=== PATIENT | male | born 1995 | race Hispanic/Latino ===

== ENCOUNTER 2024-09-03 22:47 | Emergency (ER) | payer SELFPAY ==
[2024-09-04] MEDS ORDERED: ONDANSETRON 4 MG/2 ML VIAL ONE ×2 (00:38→00:56)
[2024-09-04] MEDS ORDERED: LORazepam 2 MG/ML VIAL ONE (00:39)
[2024-09-04 00:40] LABS: Absolute Basophils 0.1 K/uL (0-0.5); Absolute Lymphocytes (CBC) 2.3 K/uL (0.7-4.9); Absolute Monocytes 0.7 K/uL (0.1-1.3); Absolute Neutrophil 17.4 K/uL (1.8-8.0); Basophils % 0.4 % (0-1.3); Eosinophils % 0.2 % (0-4.4); Hematocrit 45.1 % (39.6-49.0); Hemoglobin 15.8 g/dL (13.6-17.9); Lymphocytes % 11.4 % (15.3-44.8); MCH 29.2 pg (27.0-35.0); MCHC 34.9 g/dL (32.0-36.0); MCV 83.6 fL (80-100); MPV 7.9 fL (7.6-11.3); Monocytes % 3.5 % (3.3-12.3); Neutrophils % 84.5 % (41.7-73.7); Platelets 309 thou/uL (152-406); Red Cell Distribution Width 13.2 % (12.1-15.2)
[2024-09-04] MEDS ORDERED: NA CHLORIDE 0.9% 2,000 ML ONE (00:40)
[2024-09-04 00:49] LABS: PT Prothrombin Time 11.7 SECONDS (9.4-12.5); PTT, Activated Partial Thromb 29.3 SECONDS (24.3-36.9); Protime INR 1.05
[2024-09-04 01:02] LABS: ALT/SGPT 26 U/L (16-61); AST/SGOT 12 U/L (15-37); Albumin 4.1 g/dL (3.4-5.0); Albumin/Globulin Ratio 1.3 (1.1-1.8); Alkaline Phosphatase 75 U/L (45-117); Anion Gap 9.7 mEq/L (5.0-15.0); BUN Blood Urea Nitrogen 11 mg/dL (7-18); Bicarbonate 29 mEq/L (21-32); Bilirubin Total 0.4 mg/dL (0.2-1.0); Globulin 3.2 g/dL (2.3-3.5); Glomerular Filtration Rate 104 ml/min (=/>90); Glucose Level 180 mg/dL (74-106); Potassium 3.7 mEq/L (3.5-5.1); Protein, Total 7.3 g/dL (6.4-8.2); Sodium Level 139 mEq/L (136-145)
[2024-09-04 01:10] LABS: Bilirubin Direct < 0.2 mg/dL (0-0.2); Bilirubin Indirect, Calculated 0.2 mg/dL (0.2-0.8)
[2024-09-04 01:38] LABS: Band Neutrophils 16 % (0-1); Blood Morphology Comment NOT SEEN (NOT SEEN); Differential Total Cells Count 100; Lymphocytes 14 % (15-42); Monocytes 2 % (0-10); Platelet Estimate ADEQ; Segmented Neutrophils 68 % (40-80)
[2024-09-04 04:05] LABS: Specific Gravity 1.016 (1.005-1.030); Sqamous Epithelial None Seen /HPF (None Seen); Urine Bacteria <20 /HPF (<20); Urine Bilirubin NEGATIVE (Negative); Urine Blood Negative (Negative); Urine Clarity Clear (Clear); Urine Color Light-Yellow (Yellow); Urine Culture Reflex Order NOT NEEDED; Urine Glucose NEGATIVE (Negative); Urine Ketones NEGATIVE (Negative); Urine Microscopic Reflex YN ORDER UMIC; Urine Mucus Slight /HPF (None Seen); Urine Nitrite NEGATIVE (Negative); Urine Protein NEGATIVE (Negative); Urine RBC <5 /HPF (None Seen); Urine Urobilinogen Normal (Normal); Urine WBC <5 /HPF (<5)
[2024-09-04 04:14] LABS: Barbiturates NEGATIVE (NEGATIVE); Benzodiazepines NEGATIVE (NEGATIVE); Cocaine NEGATIVE (NEGATIVE); METHAMPHETAM NEGATIVE (NEGATIVE); Methadone NEGATIVE (NEGATIVE); Opiates NEGATIVE (NEGATIVE); Phencyclidine NEGATIVE (NEGATIVE); THC Cannibis NEGATIVE (NEGATIVE)
--- NOTE | 2024-09-04 04:30 | EDPHYS ---
Physician Documentation [facility] Name: Anatoly Mcleod Age: 28 yrs Sex: Male : 1995 Arrival Date: 09/03/2024 Time: 22:47 Bed 19 Private MD: ED Physician Sheldon Ocasio HPI: 09/04 04:28 This 28 yrs old Male presents to ER via EMS with complaints of Overdose. sp4 Historical: - Allergies: 02:23 No Known Allergies; cp4 - Immunization history:: Adult Immunizations unknown. - Infectious Disease History:: Denies. - Social history:: Smoking status: unknown. Vital Signs: 09/03 23:47 BP 134 / 69; Pulse 106; Resp 20; Temp 97.4; Pulse Ox 100% ; me1 09/04 00:58 BP 122 / 74; Pulse 102; Resp 20; Pulse Ox 100% ; cp4 02:26 BP 120 / 68; Pulse 104; Resp 18; Pulse Ox 99% ; cp4 03:28 BP 130 / 79; Pulse 95; Resp 18; Pulse Ox 98% ; cp4 04:36 BP 109 / 62; Pulse 94; Resp 18; Pulse Ox 97% ; cp4 MDM: 09/03 23:09 Medical Screening Exam initiated sp4 09/03 23:05 Order name: Acetaminophen; Complete Time: 01:20 sp4 09/03 23:05 Order name: Basic Metabolic Panel; Complete Time: 01:20 4 09/03 23:05 Order name: CBC with Diff; Complete Time: 03:11 4 09/03 23:05 Order name: ETOH Level; Complete Time: 01:20 4 09/03 23:05 Order name: Hepatic Function; Complete Time: 01:20 sp4 09/03 23:05 Order name: PT-INR; Complete Time: 01:20 4 09/03 23:05 Order name: Ptt, Activated; Complete Time: 01:20 4 09/03 23:05 Order name: Salicylate; Complete Time: 01:20 4 09/03 23:05 Order name: Urinalysis w/ reflexes; Complete Time: 04:09 4 09/03 23:05 Order name: Urine Drug Screen; Complete Time: 04:24 4 09/04 00:51 Order name: Manual Differential; Complete Time: 03:11 EDMS 09/03 23:05 Order name: EKG; Complete Time: 23:06 sp4 09/03 23:05 Order name: EKG - Nurse/Tech; Complete Time: 00:37 sp4 09/03 23:05 Order name: IV Saline Lock; Complete Time: 00:13 sp4 09/03 23:05 Order name: Labs collected and sent; Complete Time: 00:14 sp4 09/03 23:05 Order name: Suicide Screening ([place]); Complete Time: 02:25 sp4 Administered Medications: 09/04 00:46 Drug: NS 0.9% IV 1000 ml IV at 1 bolus Per protocol; to be given as a bolus over 60 cp4 minutes Route: IV; Rate: 1 bolus; Site: right antecubital; 02:28 Follow up: Response: No adverse reaction; IV Status: Completed infusion cp4 00:46 Drug: NS 0.9% IV 1000 ml IV at 1 bolus Per protocol; to be given as a bolus over 60 cp4 minutes Route: IV; Rate: 1 bolus; Site: right antecubital; 02:28 Follow up: Response: No adverse reaction; IV Status: Completed infusion cp4 00:46 Drug: Ondansetron IVP 8 mg IVP once; over 2 minutes Route: IVP; Site: right antecubital;cp4 00:47 Drug: Ativan IVP 1 mg IVP once Route: IVP; Site: right antecubital; cp4 02:28 Follow up: Response: No adverse reaction cp4 00:57 Drug: Ondansetron IVP 8 mg IVP once; over 2 minutes Route: IVP; Site: right antecubital;cp4 02:28 Follow up: Response: No adverse reaction cp4 Disposition Summary: 09/04/24 04:30 Discharge Ordered Notes: Location: Home sp4 Problem: new sp4 Symptoms: have improved sp4 Condition: Stable sp4 Diagnosis - Acute Drug Intoxication, Acute Vomiting, Hyperglycemia, Adverse reaction to the sp4 Substance Followup: sp4 - With: Private Physician - When: As needed - Reason: Discharge Instructions: - Discharge Summary Sheet sp4 - Supporting Someone With Substance Use Disorder sp4 Forms: - Patient Portal Instructions sp4 Signatures: Dispatcher [employer] Sheldon Conner MD MD sp4 Cheryle Whalen cp4 Corrections: (The following items were deleted from the chart) 09/03 23:06 23:06 ACETAMINOPHEN+C.LAB.BRZ ordered. EDMS EDMS 23: 23:06 BASIC METABOLIC PANEL+C.LAB.BRZ ordered. EDMS EDMS 23: 23:06 CBC+H.LAB.BRZ ordered. EDMS EDMS 23: 23:06 ETHANOL+C.LAB.BRZ ordered. EDMS EDMS 23: 23:06 HEPATIC FUNCTION+C.LAB.BRZ ordered. EDMS EDMS 23: 23:06 PROTIME (+INR)+COAG.LAB.BRZ ordered. EDMS EDMS 23: 23:06 PTT, ACTIVATED+COAG.LAB.BRZ ordered. EDMS EDMS 23: 23:06 SALICYLATE+C.LAB.BRZ ordered. EDMS EDMS 23: 23:06 Urinalysis+U.LAB.BRZ ordered. EDMS EDMS 23: 23:06 URINE DRUG SCREEN+UC.LAB.BRZ ordered. EDMS EDMS
--- NOTE | 2024-09-04 04:30 | ER ---
Nurse's Notes [facility] Name: Anatoly Mcleod Age: 28 yrs Sex: Male : 1995 Arrival Date: 09/03/2024 Time: 22:47 Bed 19 Private MD: Diagnosis: Acute Drug Intoxication, Acute Vomiting, Hyperglycemia, Adverse reaction to the Substance Presentation: 09/03 23:47 Chief complaint: EMS states: toned out altered mental status. Patient was able to me1 communicate at times and did tell EMS that he took a weed gummy. Tachycardic at about 110, vomited x1. Orientation varies intermittently. Coronavirus screen:. Initial Sepsis Screen: Does the patient meet any 2 criteria? HR > 90 bpm. Risk Assessment: Do you want to hurt yourself or someone else? Unable to obtain. Onset of symptoms is unknown. 23:47 Method Of Arrival: EMS: [facility] 23:47 Acuity: KIM 3 ma1 09/04 02:22 Ebola Screen: Patient negative for fever greater than or equal to 101.5 degrees cp4 Fahrenheit, and additional compatible Ebola Virus Disease symptoms Patient denies exposure to infectious person. Patient denies travel to an Ebola-affected area in the 21 days before illness onset. No symptoms or risks identified at this time. Initial Sepsis Screen: Does the patient have a suspected source of infection? No. Patient's initial sepsis screen is negative. Triage Assessment: 09/03 23:47 General: Appears well developed, well nourished, Behavior is drowsy, restless. Pain: me1 Unable to use pain scale. Patient is disoriented. EENT: No signs and/or symptoms were reported regarding the EENT system. Neuro: Level of Consciousness is confused, lethargic, Oriented to unable to assess at this time as patient wont answer any questions. Alert intermittently. Cardiovascular: Patient's skin is warm and dry. Respiratory: Airway is patent Respiratory effort is even, unlabored, Respiratory pattern is regular, symmetrical. GI: No signs and/or symptoms were reported involving the gastrointestinal system. : No signs and/or symptoms were reported regarding the genitourinary system. Derm: Skin is intact, is healthy with good turgor, Skin is pink, warm \\T\\ dry. Musculoskeletal: No signs and/or symptoms reported regarding the musculoskeletal system. Historical: - Allergies: 09/04 02:23 No Known Allergies; cp4 - Immunization history:: Adult Immunizations unknown. - Infectious Disease History:: Denies. - Social history:: Smoking status: unknown. Screenin/12 23:53 [facility] ED Fall Risk Assessment (Adult) History of falling in the last 3 months, ma1 including since admission No falls in past 3 months (0 pts) Confusion or Disorientation Yes (5 pts) Intoxicated or Sedated Yes (3 pts) Impaired Gait Yes (1 pt) Mobility Assist Device Used No (0 pt) Altered Elimination No (0 pt) Score/Fall Risk Level 3 or more points = High Risk Maintained a safe environment, Provided non-skid footwear, Hourly rounding (assess needs \\T\\ fall precautionary measures) done. Abuse screen: Denies threats or abuse. Nutritional screening: No deficits noted. Tuberculosis screening: No symptoms or risk factors identified. Assessment: 23:53 General: See triage assessment. . me1 09/04 01:17 Reassessment: Patient's sister states that patient took 2 Toke Gummies. cp4 02:27 Reassessment: Patient appears in no apparent distress at this time. Patient and/or cp4 family updated on plan of care and expected duration. Pain level reassessed. Patient is alert, oriented x 3, equal unlabored respirations, skin warm/dry/pink. 03:29 Reassessment: Patient appears in no apparent distress at this time. Patient and/or cp4 family updated on plan of care and expected duration. Pain level reassessed. Patient is alert, oriented x 3, equal unlabored respirations, skin warm/dry/pink. Overdose: 02:23 [place] Suicide Severity Screening: "In the past month, have you wished you were cp4 or wished you could go to sleep and not wake up?" Patient responds "no." "In the past month, have you actually had any thoughts of killing yourself?" Patient responds "no." "In your lifetime, have you ever done anything, started to do anything, or prepared to do anything to end your life?" Patient responds "no.". Patient took 2 Toke Gummies. Overdose occurred 2-3 hours ago. 04:37 [place] Suicide Severity Screening: "In the past month, have you wished you were cp4 or wished you could go to sleep and not wake up?" Patient responds "no." "In the past month, have you actually had any thoughts of killing yourself?" Patient responds "no.". Vital Signs: 09/03 23:47 BP 134 / 69; Pulse 106; Resp 20; Temp 97.4; Pulse Ox 100% ; me1 09/04 00:58 BP 122 / 74; Pulse 102; Resp 20; Pulse Ox 100% ; cp4 02:26 BP 120 / 68; Pulse 104; Resp 18; Pulse Ox 99% ; cp4 03:28 BP 130 / 79; Pulse 95; Resp 18; Pulse Ox 98% ; cp4 04:36 BP 109 / 62; Pulse 94; Resp 18; Pulse Ox 97% ; cp4 ED Course: 09/03 23:01 Patient arrived in ED. [id number] 23:02 Sheldon Ocasio MD is Attending Physician. sp4 23:47 Cami Colbert, JERI is Primary Nurse. me1 23:47 Arm band placed on Patient placed in an exam room. me1 23:50 Triage completed. me1 23:53 Patient has correct armband on for positive identification. Bed in low position. Call [facility] light in reach. Side rails up X2. Provided Education on: POC. Verbalized understanding. Client placed on continuous cardiac and pulse oximetry monitoring. NIBP monitoring applied. Pulse ox on. NIBP on. 23:53 No provider procedures requiring assistance completed. ma1 09/04 00:13 Initial lab(s) drawn, by ma, sent to lab. Inserted saline lock: 20 gauge in right ma1 antecubital area, using aseptic technique. 00:14 Acetaminophen Sent. me1 00:14 Basic Metabolic Panel Sent. me1 00:14 CBC with Diff Sent. me1 00:14 ETOH Level Sent. me1 00:14 Hepatic Function Sent. me1 00:14 PT-INR Sent. me1 00:14 Ptt, Activated Sent. me1 00:14 Salicylate Sent. me1 03:38 Urine collected: clean catch specimen, clear. cp4 04:37 intact, bleeding controlled, No redness/swelling at site. Pressure dressing applied. cp4 Administered Medications: 00:46 Drug: NS 0.9% IV 1000 ml IV at 1 bolus Per protocol; to be given as a bolus over 60 cp4 minutes Route: IV; Rate: 1 bolus; Site: right antecubital; 02:28 Follow up: Response: No adverse reaction; IV Status: Completed infusion cp4 00:46 Drug: NS 0.9% IV 1000 ml IV at 1 bolus Per protocol; to be given as a bolus over 60 cp4 minutes Route: IV; Rate: 1 bolus; Site: right antecubital; 02:28 Follow up: Response: No adverse reaction; IV Status: Completed infusion cp4 00:46 Drug: Ondansetron IVP 8 mg IVP once; over 2 minutes Route: IVP; Site: right antecubital;cp4 00:47 Drug: Ativan IVP 1 mg IVP once Route: IVP; Site: right antecubital; cp4 02:28 Follow up: Response: No adverse reaction cp4 00:57 Drug: Ondansetron IVP 8 mg IVP once; over 2 minutes Route: IVP; Site: right antecubital;cp4 02:28 Follow up: Response: No adverse reaction cp4 Medication: 09/03 23:53 VIS not applicable for this client. me1 Outcome: 09/04 04:30 Discharge ordered by . sp4 04:37 Discharged to home via wheelchair, cp4 04:37 Condition: stable 04:37 Discharge instructions given to patient, family, Instructed on discharge instructions, follow up and referral plans. Demonstrated understanding of instructions, follow-up care, 04:37 Patient left the ED. cp4 Signatures: Barbara [id number] Sheldon Ocasio MD MD sp4 Cami Colbert RN RN me1 Cheryle Whalen cp4
[2024-09-04 04:52] VITALS: TEMP 97.4
[2024-09-04 05:06] VITALS: BP 109/62; O2SAT 97
== END 2024-09-04 04:37 | disposition home or self-care (01) ==
LOC: ER 22:47
DX: R11.10 Vomiting, unspecified (principal); F19.129 Other psychoactive substance abuse with intoxication, unspecified; R73.9 Hyperglycemia, unspecified; T50.905A Adverse effect of unspecified drugs, medicaments and biological substances, initial encounter
CPT/HCPCS: 36415; 80048; 80076; 80143; 80179; 80307; 81001; 82077; 85025; 85610; 85730; 93005; J2405; J7030